=== PATIENT | female | born 1980 | race Caucasian/White ===

== ENCOUNTER 2024-05-31 12:55 | Emergency (ER) | payer SELFPAY ==
[~2024-05-31] VITALS: Ht 165.1 cm; Wt 98.9 kg
[2024-05-31 13:26] VITALS: BP 131/61; PULSE 89; RESP 18; TEMP 97.8; O2SAT 98
[2024-05-31 14:01] VITALS: O2SAT 99
[2024-05-31 15:11] LABS: BASOPHILS # (AUTO) 0.1 K/uL (0.00-0.22); BASOPHILS % (AUTO) 0.8 % (0.0-2.0); EOSINOPHILS # (AUTO) 0.1 K/uL (0-0.4); EOSINOPHILS % (AUTO) 1.5 % (0.0-4.0); HEMATOCRIT 23.5 % (36-48); LYMPHOCYTES # (AUTO) 2.3 K/uL (2.5-16.5); LYMPHOCYTES % (AUTO) 29.4 % (20.5-51.1); MEAN CORPUSCULAR HEMOGLOBIN 14 pg (27-31); MEAN CORPUSCULAR HGB CONC 26 g/dL (33-37); MEAN CORPUSCULAR VOLUME 51.4 fL (80-94); MONOCYTES # (AUTO) 0.6 K/uL (0.8-1.0); MONOCYTES % (AUTO) 7.3 % (1.7-9.3); NEUTROPHILS # (AUTO) 4.8 K/uL (1.8-7.7); PLATELET COUNT (AUTO) 374 K/uL (140-450); RED BLOOD CELL COUNT(AUTO) 4.57 MIL/uL (4.20-5.40); RED CELL DISTRIBUTION WIDTH 24.6 % (11.6-13.7); WHITE BLOOD COUNT (AUTO) 7.8 K/uL (4.8-10.8)
[2024-05-31 15:23] LABS: HEMOGLOBIN 6.2 g/dL (12.0-16.0)
[2024-05-31 15:29] LABS: ANION GAP 12.1 (8-16); CALCIUM 8.7 mg/dL (8.5-10.1); CARBON DIOXIDE 27.4 mmol/L (21-32); CREATININE 0.6 mg/dL (0.6-1.3); POTASSIUM 3.5 mmol/L (3.5-5.1)
[2024-05-31 15:31] LABS: PARTIAL THROMBOPLASTIN TIME 21.6 secs (22-35.6); PROTHROMBIN TIME 10.5 secs (10.8-13.4)
[2024-05-31 19:22] VITALS: O2SAT 99
[2024-05-31 21:09] VITALS: BP 139/76; PULSE 81; RESP 17; TEMP 98.1; O2SAT 99
== END 2024-05-31 21:09 | disposition home or self-care (01) ==
LOC: MED 12:55
DX: D64.9 Anemia, unspecified (principal); D25.1 Intramural leiomyoma of uterus; R06.02 Shortness of breath; N92.0 Excessive and frequent menstruation with regular cycle; Z90.89 Acquired absence of other organs
CPT/HCPCS: 36415; 36430; 76856; 80048; 81025; 85025; 85610; 85730; 86886; 86900; 86901; 86920; 93976; 99291; P9016; Q0092

== ENCOUNTER 2024-08-19 18:20 | Emergency (ER) | payer MEDICAID, OTHER ==
[~2024-08-19] VITALS: Ht 165.1 cm; Wt 97.5 kg
[2024-08-19 18:25] VITALS: BP 126/78; PULSE 96; RESP 18; TEMP 98.1; O2SAT 97
[2024-08-19 19:02] LABS: BASOPHILS # (AUTO) 0.1 K/uL (0.00-0.22); EOSINOPHILS # (AUTO) 0.1 K/uL (0-0.4); MEAN CORPUSCULAR HEMOGLOBIN 16 pg (27-31); MEAN CORPUSCULAR VOLUME 55.3 fL (80-94); NEUTROPHILS # (AUTO) 5.9 K/uL (1.8-7.7); WHITE BLOOD COUNT (AUTO) 9.6 K/uL (4.8-10.8)
[2024-08-19 19:12] VITALS: O2SAT 97
[2024-08-19 19:13] VITALS: BP 126/78; PULSE 96; RESP 18; TEMP 98.1; O2SAT 97
[2024-08-19 19:27] LABS: ANION GAP 11.9 (8-16); CALCIUM 8.4 mg/dL (8.5-10.1); CARBON DIOXIDE 27.5 mmol/L (21-32); CREATININE 0.7 mg/dL (0.6-1.3); POTASSIUM 3.4 mmol/L (3.5-5.1)
[2024-08-19 19:45] LABS: BASOPHILS % (AUTO) 0.7 % (0.0-2.0); HEMATOCRIT 26.2 % (36-48); HEMOGLOBIN 7.6 g/dL (12.0-16.0); LYMPHOCYTES % (AUTO) 30.9 % (20.5-51.1); MEAN CORPUSCULAR HGB CONC 29 g/dL (33-37); MONOCYTES # (AUTO) 0.6 K/uL (0.8-1.0); MONOCYTES % (AUTO) 5.9 % (1.7-9.3); NEUTROPHILS % (AUTO) 61.5 % (42.2-75.2); PLATELET COUNT (AUTO) 360 K/uL (140-450); RED BLOOD CELL COUNT(AUTO) 4.74 MIL/uL (4.20-5.40)
[2024-08-19 19:46] LABS: RED CELL DISTRIBUTION WIDTH 22.2 % (11.6-13.7)
== END 2024-08-19 20:10 | disposition home or self-care (01) ==
LOC: MED 18:20
DX: D64.9 Anemia, unspecified (principal); R03.0 Elevated blood-pressure reading, without diagnosis of hypertension; Z98.890 Other specified postprocedural states
CPT/HCPCS: 36415; 80048; 85025; 99283